=== PATIENT | female | born 1965 | race Caucasian/White ===

== ENCOUNTER 2018-11-11 15:10 | Emergency (ER) | payer MEDICAID, OTHER ==
[2018-11-11 15:16] VITALS: TEMP 98.2; O2SAT 99
[2018-11-11] MEDS ORDERED: Fluorescein 1 mg Ophthalmic Strip OD STA (15:49)
[2018-11-11] MEDS ORDERED: Tetracaine 0.5% Ophth 2 ML BOTTLE OD STA (15:49)
[2018-11-11] MEDS ORDERED: Tetracaine 0.5% Ophth 2 ML BOTTLE ONE (15:50)
[2018-11-11] MEDS ORDERED: Fluorescein 1 mg Ophthalmic Strip ONE (15:50)
--- NOTE | 2018-11-11 15:59 | ED PDOC ---
HPI: Eye Injury/Pain Time Seen by Provider: 11/11/18 15:24 Chief Complaint (Nursing): Eye Problem Chief Complaint (Provider): Right eye pain History Per: Patient History/Exam Limitations: no limitations Onset/Duration Of Symptoms: Days (1) Current Symptoms Are (Timing): Still Present Associated Symptoms: Pain Additional Complaint(s): 53 year old female presents to the ED for an evaluation of right eye pain. Patient states last night, while sitting down she suddenly felt right eye pain and nausea. She noted blood in the eye with decreased vision in the right eye and increased pain with light. Also reports of sandpaper-like sensation. Otherwise, she denies trauma, dizziness, unilateral weakness, gait instability or speech problems. Patient did not take any medication for the pain. Past Medical History Reviewed: Historical Data, Nursing Documentation, Vital Signs Vital Signs: Last Vital Signs Temp 98.2 F 11/11/18 15:13 Pulse 61 11/11/18 15:13 Resp 16 11/11/18 15:13 BP 112/71 11/11/18 15:13 Pulse Ox 99 11/11/18 15:13 - Medical History PMH: Anxiety, Depression - Family History Family History: States: Unknown Family Hx - Home Medications Home Medications: Ambulatory Orders Medication Instructions Recorded Nitrofurantoin Macrocrystals 100 mg PO BID #10 cap 11/05/14 [Macrobid] Phenazopyridine HCl [Pyridium] 100 mg PO BID PRN 5 Days tab 11/05/14 Ibuprofen [Motrin Tab] 600 mg PO Q6 PRN 7 Days tab 11/11/18 - Allergies Allergies/Adverse Reactions: Allergies Allergy/AdvReac Type Severity Reaction Status Date / Time Anesthetics - Amide Type Allergy SHORTNESS Verified 11/11/18 15:13 OF BREATH Anesthetics - Mary Type- Allergy SHORTNESS Verified 11/11/18 15:13 Parabens OF BREATH Anesthesia Allergy SHORTNESS Uncoded 11/11/18 15:13 OF BREATH Review of Systems ROS Statement: Except As Marked, All Systems Reviewed And Found Negative Constitutional: Negative for: Weakness Eyes: Positive for: Pain (right eye ), Vision Change (right eye ). Negative for: Other (trauma) Gastrointestinal: Positive for: Nausea Neurological: Negative for: Dizziness Physical Exam - Reviewed Nursing Documentation Reviewed: Yes Vital Signs Reviewed: Yes - Physical Exam Appears: Positive for: Uncomfortable Eye Exam: Positive for: EOMI, PERRL (bilaterally), Other (subconjunctival hemorrhage on medial right eye). Negative for: Normal appearance (sensitive to light touch is intact) ENT: Positive for: Normal ENT Inspection (no tongue deviation, symmetrical smile, able to puff cheeks bilateral ), Other (face bilateral upper and lower torso ) Extremity: Positive for: Normal ROM, Other (character artist strength equal bilaterally) Neurological/Psych: Positive for: Awake, Alert, Normal Tone, Oriented (x3) - ECG O2 Sat by Pulse Oximetry: 99 (RA) Pulse Ox Interpretation: Normal Medical Decision Making Medical Decision Making: Time: 15:49 Initial Plan: Fluoresein 1mg Tonometer for glaucoma Tetracaine 0.5% Ophth visual acuity test for Left eye: 20/50 and Right eye: 20/70 16:46 Tonometer revealed pressure of 20mm of mercury, 14mm of mercury and 13mm of mercury Right eye visualized after tetracaine fluorescence placement shows no corneal ulceration Placed a call to the retail client solutions consultant, Dr. Vale and waiting for a callback 17:[address] Vale who likely states it is subconjunctival hemorrhage given high pressure. Patient needs to follow-up with him at his office at 9AM tomorrow, 11/12/18 Upon provider evaluation patient is medically stable, and requires no further treatment in the ED at this time. Patient will be discharged. Counseling was provided and all questions were answered regarding diagnosis and need for follow up with PMD. There is agreement to discharge plan. Return if symptoms persist or worsen. Scribe Attestation: Documented by Isabel Silveira, acting as a scribe for Michelle Simon PA-C. Provider Scribe Attestation: All medical record entries made by the Scribe were at my direction and personally dictated by me. I have reviewed the chart and agree that the record accurately reflects my personal performance of the history, physical exam, medical decision making, and the department course for this patient. I have also personally directed, reviewed, and agree with the discharge instructions and disposition. Disposition - Clinical Impression Clinical Impression: Subconjunctival hemorrhage - Patient ED Disposition Is Patient to be Admitted: No - Disposition Referrals: Juan Luis Vale MD [Staff Provider] - Disposition: Routine/Home Disposition Time: 17:58 Condition: STABLE Additional Instructions: Follow up with Dr. Vale (retail client solutions consultant) tomorrow at 9am. Take Ibuprofen or Tylenol for pain. Return to ER if your pain or visual problems worsen. Prescriptions: Ibuprofen [Motrin Tab] 600 mg PO Q6 PRN 7 Days tab PRN Reason: Pain, Moderate (4-7) Instructions: Subconjunctival Hemorrhage Forms: [facility] (Azerbaijani) Print Language: ARABIC
[2018-11-11 18:10] VITALS: BP 135/78; PULSE 72; RESP 18
== END 2018-11-11 18:09 | disposition home or self-care (01) ==
LOC: H.ER 15:10
DX: H11.31 Conjunctival hemorrhage, right eye (principal); Z88.4 Allergy status to anesthetic agent